=== PATIENT | male | born 1945 | race Caucasian/White ===

== ENCOUNTER 2017-06-17 12:52 | Emergency (ER) | payer MEDICARE ==
[~2017-06-17] VITALS: Ht 177.8 cm; Wt 83.5 kg
[~2017-06-17 12:52] MED LIST: ASPI81EC PO; Aspirin EC81 MG; BP MED PO; CEPH500 PO; CHOL10002 PO; CITRACAL PO; DICL75ER PO; Flomax0.4 MG PO; METO25ER PO; METO50ER PO; MULVITMIND PO; OMEP20ER PO; OXYACE5T PO; Omega 3 1,0001 EACH PO; Percocet 10-321 EACH PO; ROXICODONE5 MG PO; TAMS.4ER PO; WARF5 PO; XARELTO20 MG PO
[2017-06-17] MEDS ORDERED: CLOP75 PO (13:05)
[2017-06-17 13:22] LABS: BASOPHILS ABSOLUTE AUTO 0.05 K/mm3 (0.00-0.23); BASOPHILS PERCENT AUTO 1 % (0-2); EOSINOPHILS ABSOLUTE AUTO 0.09 K/mm3 (0.00-0.68); EOSINOPHILS PERCENT AUTO 1 % (0-6); Hematocrit 46.4 % (37.0-53.0); Hemoglobin 16.1 g/dL (13.5-17.5); IMMATURE GRAN ABSOLUTE AUTO 0.05 K/mm3 (0.00-0.10); IMMATURE GRAN PERCENT AUTO 1 % (0-1); LYMPHOCYTES ABSOLUTE AUTO 1.36 K/mm3 (0.84-5.20); LYMPHOCYTES PERCENT AUTO 12 % (21-46); MONOCYTES ABSOLUTE AUTO 0.45 K/mm3 (0.16-1.47); MONOCYTES PERCENT AUTO 4 % (4-13); Mean Corpuscular HGB Conc 34.7 g/dL (31.5-36.5); Mean Corpuscular Volume 89 fL (80-100); Mean Platelet Volume 10.2 fL (9.1-12.4); NEUTROPHILS ABSOLUTE AUTO 9.03 K/mm3 (1.96-9.15); NEUTROPHILS PERCENT AUTO 82 % (41-73); Platelet Count 224 K/mm3 (150-400); RDW Coefficient Variation 12.9 % (11.7-14.2); RDW Standard Deviation 42.6 fL (35.1-46.3); Red Blood Cell Count 5.19 M/mm3 (4.30-5.90); White Blood Cell Count 11.03 K/mm3 (4.00-11.30)
[2017-06-17 13:38] LABS: Troponin I <0.015 ng/mL (0.000-0.040)
[2017-06-17 14:06] LABS: Base Excess Venous -3.9 mmol/L; Bicarbonate Venous 22.1 mmol/L (24.0-30.0); PCO2 Venous 31.7 mmHg (38-42); PO2 Venous 71.7 mmHg (38-42); pH Blood Venous 7.42 (7.34-7.37)
[2017-06-17 15:29] LABS: Albumin, Blood 3.8 g/dL (3.4-5.0); Albumin/Globulin Ratio 1.1 (0.8-1.8); Alk Phos 69 U/L (50-136); Anion Gap 12 mmol/L (6-16); Aspartate Aminotrans (AST/SGOT 21 U/L (12-37); Bilirubin, Total 0.7 mg/dL (0.1-1.0); Blood Urea Nitrogen 27 mg/dL (8-24); Bun/Creatinine Ratio 30.7 (12.0-20.0); CO2, Blood 19 mmol/L (21-32); Calcium, Blood 8.9 mg/dL (8.5-10.1); Chloride, Blood 108 mmol/L (98-108); Creatinine, Blood 0.88 mg/dL (0.60-1.20); Globulin, Blood 3.4 g/dL (2.2-4.0); Glomerular Filtration Rate >60 (60-); Glucose, Blood 172 mg/dL (70-99); Potassium, Blood 3.8 mmol/L (3.5-5.5); Sodium, Blood 139 mmol/L (136-145); Total Protein, Blood 7.2 g/dL (6.4-8.2)
[2017-06-17 16:09] LABS: Alanine Aminotransfer (ALT/SGP 25 U/L (12-78)
== END 2017-06-17 15:27 | disposition home or self-care (01) ==
LOC: ER 12:52
PROVIDERS: Emergency Medicine
DX: J32.9 Chronic sinusitis, unspecified (principal); R42 Dizziness and giddiness; R06.4 Hyperventilation; K21.9 Gastro-esophageal reflux disease without esophagitis; Z79.899 Other long term (current) drug therapy; Z86.718 Personal history of other venous thrombosis and embolism; Z87.891 Personal history of nicotine dependence; Z79.02 Long term (current) use of antithrombotics/antiplatelets
CPT/HCPCS: 36415; 71046; 80053; 82803; 83880; 84484; 85025; 85379; 93005; 93010; 99284

== ENCOUNTER → 2017-10-02 | Outpatient (CLI) | payer MEDICARE ==
[~2017-10-02] MED LIST changes: +CLOP75 PO
[2017-10-03 14:18] LABS: Stool Occult Bld Immuno 1 Negative (NEGATIVE); Stool Occult Bld Immuno 2 Negative (NEGATIVE)
== END ==
LOC: LAB SHORT 12:35 → OLS 12:35
PROVIDERS: Internal Medicine Gastroenterology
DX: K57.30 Diverticulosis of large intestine without perforation or abscess without bleeding (principal); Z12.11 Encounter for screening for malignant neoplasm of colon
CPT/HCPCS: 82274

== ENCOUNTER 2019-04-14 09:27 | Day surgery (SDC) | payer MEDICARE ==
[~2019-04-14] VITALS: Ht 177.8 cm; Wt 90.4 kg
[2019-04-14] MEDS ORDERED: Naproxen375 MG PO (11:51)
== END 2019-04-14 12:00 | disposition home or self-care (01) ==
LOC: ORSCSDS 09:27
PROVIDERS: Internal Medicine Gastroenterology
PROC: 0D757ZZ Dilation of Esophagus, Via Natural or Artificial Opening (ICD-10-PCS; principal; 2019-04-14 10:45)
PROC: 0DB68ZX Excision of Stomach, Via Natural or Artificial Opening Endoscopic, Diagnostic (ICD-10-PCS; principal; 2019-04-14 10:45)
PROC: 0DB58ZX Excision of Esophagus, Via Natural or Artificial Opening Endoscopic, Diagnostic (ICD-10-PCS; principal; 2019-04-14 10:45)
DX: K22.70 Barrett's esophagus without dysplasia (principal); R13.14 Dysphagia, pharyngoesophageal phase; K44.9 Diaphragmatic hernia without obstruction or gangrene; Z87.891 Personal history of nicotine dependence; Z79.82 Long term (current) use of aspirin; Z79.899 Other long term (current) drug therapy
CPT/HCPCS: 87081; 88305; 88342; J2704; J7120

== ENCOUNTER → 2019-10-05 | Outpatient (CLI) | payer MEDICARE ==
[~2019-10-05] MED LIST changes: +Naproxen375 MG PO
== END | disposition home or self-care (01) ==
LOC: LAB SHORT 20:30 → LAB 20:30
DX: R19.7 Diarrhea, unspecified (principal)
CPT/HCPCS: 87493

== ENCOUNTER 2019-12-01 13:19 | Day surgery (SDC) | payer MEDICARE ==
[~2019-12-01] VITALS: Ht 180.3 cm; Wt 98.8 kg
--- NOTE | 2019-12-01 14:05 | NUR ---
12/01/19 1405 Emmanuelle Thrasher PT USED [facility]
== END 2019-12-01 15:18 | disposition home or self-care (01) ==
LOC: ORSCSDS 13:19
PROVIDERS: Internal Medicine Gastroenterology
PROC: 0DBE8ZX Excision of Large Intestine, Via Natural or Artificial Opening Endoscopic, Diagnostic (ICD-10-PCS; principal; 2019-12-01 14:45)
PROC: 0DBB8ZX Excision of Ileum, Via Natural or Artificial Opening Endoscopic, Diagnostic (ICD-10-PCS; principal; 2019-12-01 14:45)
DX: R19.7 Diarrhea, unspecified (principal); K57.30 Diverticulosis of large intestine without perforation or abscess without bleeding; E78.5 Hyperlipidemia, unspecified; Z87.891 Personal history of nicotine dependence; Z79.82 Long term (current) use of aspirin; Z79.899 Other long term (current) drug therapy
CPT/HCPCS: 88305; J2704; J7120

== ENCOUNTER → 2020-07-25 | Outpatient (CLI) | payer OTHER ==
[~2020-07-25] MED LIST changes: +ALEVE220 MG; +Aspirin EC81 MG PO; +BUDESONIDE EC3 M1 PO; +KRILL OIL 1,001 EACH PO; +MULTIPLE VITAM1 EACH PO; +Pepto-Bismol262 M1 PO
== END | disposition home or self-care (01) ==
LOC: LAB SHORT 13:21 → PLD 13:21
DX: D49.2 Neoplasm of unspecified behavior of bone, soft tissue, and skin (principal)
CPT/HCPCS: 88305

== ENCOUNTER 2020-08-16 08:19 | Day surgery (SDC) | payer OTHER ==
[~2020-08-16] VITALS: Ht 177.8 cm; Wt 91.2 kg
== END 2020-08-16 10:30 | disposition home or self-care (01) ==
LOC: ORSCSDS 08:19
PROVIDERS: Internal Medicine Gastroenterology
PROC: 0DB58ZX Excision of Esophagus, Via Natural or Artificial Opening Endoscopic, Diagnostic (ICD-10-PCS; principal; 2020-08-16 09:45)
PROC: 0DB78ZX Excision of Stomach, Pylorus, Via Natural or Artificial Opening Endoscopic, Diagnostic (ICD-10-PCS; principal; 2020-08-16 09:45)
DX: K22.70 Barrett's esophagus without dysplasia (principal); K29.50 Unspecified chronic gastritis without bleeding; K44.9 Diaphragmatic hernia without obstruction or gangrene; K21.9 Gastro-esophageal reflux disease without esophagitis; Z87.891 Personal history of nicotine dependence; Z86.718 Personal history of other venous thrombosis and embolism; Z79.82 Long term (current) use of aspirin; Z79.899 Other long term (current) drug therapy
CPT/HCPCS: 88305; 88341; 88342; J2704; J7120

== ENCOUNTER 2020-11-25 20:10 | Emergency (ER) | payer OTHER ==
[~2020-11-25] VITALS: Ht 177.8 cm; Wt 86.2 kg
[2020-11-25 22:09] LABS: BASOPHILS ABSOLUTE AUTO 0.04 K/mm3 (0.00-0.23); BASOPHILS PERCENT AUTO 0 % (0-2); EOSINOPHILS ABSOLUTE AUTO 0.01 K/mm3 (0.00-0.68); EOSINOPHILS PERCENT AUTO 0 % (0-6); Hematocrit 47.9 % (37.0-53.0); Hemoglobin 16.2 g/dL (13.5-17.5); IMMATURE GRAN ABSOLUTE AUTO 0.06 K/mm3 (0.00-0.10); IMMATURE GRAN PERCENT AUTO 1 % (0-1); LYMPHOCYTES ABSOLUTE AUTO 0.75 K/mm3 (0.84-5.20); LYMPHOCYTES PERCENT AUTO 6 % (21-46); MONOCYTES ABSOLUTE AUTO 0.86 K/mm3 (0.16-1.47); MONOCYTES PERCENT AUTO 7 % (4-13); Mean Corpuscular HGB 31.2 pg (26.0-34.0); Mean Corpuscular HGB Conc 33.8 g/dL (31.5-36.5); Mean Corpuscular Volume 92 fL (80-100); Mean Platelet Volume 9.9 fL (9.1-12.4); NEUTROPHILS ABSOLUTE AUTO 11.03 K/mm3 (1.96-9.15); NEUTROPHILS PERCENT AUTO 87 % (41-73); Platelet Count 214 K/mm3 (150-400); RDW Standard Deviation 44.1 fL (35.1-46.3); White Blood Cell Count 12.75 K/mm3 (4.00-11.30)
[2020-11-25 22:28] LABS: Albumin, Blood 3.7 g/dL (3.4-5.0); Albumin/Globulin Ratio 0.9 (0.8-1.8); Bun/Creatinine Ratio 17.4 (12.0-20.0); Creatinine, Blood 1.72 mg/dL (0.60-1.20); Globulin, Blood 3.9 g/dL (2.2-4.0); Potassium, Blood 4.4 mmol/L (3.5-5.5); Total Protein, Blood 7.6 g/dL (6.4-8.2)
[2020-11-25 23:32] LABS: Source, Urine Clean Catch
[2020-11-25 23:35] LABS: Bilirubin, Urine Neg (Neg); Blood, Urine 4+ (Neg); Glucose Qualitative, Urine Neg (Neg); Ketones, Urine 1+ (Neg); Leukocyte Esterase, Urine 2+ (Neg); Nitrite, Urine Neg (Neg); Protein, Urine 2+ (Neg); Urobilinogen, Urine NORM (Normal)
[2020-11-25 23:46] LABS: Appearance, Urine Hazy (Clear); Color, Urine Yellow (P-Yellow)
[2020-11-25 23:48] LABS: Amorphous Light (0-Heavy); Bacteria Mod /hpf; Squamous Epithelial Cells Not Seen /hpf (Few); White Blood Cells, Urine 25-50 /hpf (0-5)
[2020-11-26] MEDS ORDERED: METO50ER PO (01:35)
== END 2020-11-26 03:58 | disposition short-term general hospital (02) ==
LOC: ER 20:10
PROVIDERS: Physician Assistant
DX: N13.6 Pyonephrosis (principal); N18.9 Chronic kidney disease, unspecified; K21.9 Gastro-esophageal reflux disease without esophagitis; Z79.891 Long term (current) use of opiate analgesic; Z79.899 Other long term (current) drug therapy; Z87.442 Personal history of urinary calculi
CPT/HCPCS: 36415; 74176; 80053; 81001; 85025; 87077; 87086; 87186; 96365; 96375; 99284-25; J0696; J1885; J2270; J2405; J7030

== ENCOUNTER → 2021-02-05 | Outpatient (CLI) | payer OTHER ==
[2021-02-05 17:58] LABS: BASOPHILS ABSOLUTE AUTO 0.06 K/mm3 (0.00-0.23); BASOPHILS PERCENT AUTO 1 % (0-2); EOSINOPHILS ABSOLUTE AUTO 0.09 K/mm3 (0.00-0.68); EOSINOPHILS PERCENT AUTO 1 % (0-6); Hematocrit 48.1 % (37.0-53.0); Hemoglobin 16.8 g/dL (13.5-17.5); IMMATURE GRAN ABSOLUTE AUTO 0.09 K/mm3 (0.00-0.10); IMMATURE GRAN PERCENT AUTO 1 % (0-1); LYMPHOCYTES ABSOLUTE AUTO 1.69 K/mm3 (0.84-5.20); LYMPHOCYTES PERCENT AUTO 13 % (21-46); MONOCYTES ABSOLUTE AUTO 1.16 K/mm3 (0.16-1.47); MONOCYTES PERCENT AUTO 9 % (4-13); Mean Corpuscular HGB 31.2 pg (26.0-34.0); Mean Corpuscular HGB Conc 34.9 g/dL (31.5-36.5); Mean Corpuscular Volume 89 fL (80-100); Mean Platelet Volume 9.9 fL (9.1-12.4); NEUTROPHILS ABSOLUTE AUTO 10.24 K/mm3 (1.96-9.15); NEUTROPHILS PERCENT AUTO 77 % (41-73); Platelet Count 251 K/mm3 (150-400); RDW Coefficient Variation 13.9 % (11.7-14.2); RDW Standard Deviation 45.1 fL (35.1-46.3); Red Blood Cell Count 5.39 M/mm3 (4.30-5.90); White Blood Cell Count 13.33 K/mm3 (4.00-11.30)
[2021-02-05 18:09] LABS: Albumin, Blood 4.3 g/dL (3.4-5.0); Bilirubin, Total 0.5 mg/dL (0.1-1.0); Bun/Creatinine Ratio 18.3 (12.0-20.0); Calcium, Blood 9.6 mg/dL (8.5-10.1); Creatinine, Blood 1.53 mg/dL (0.60-1.20); Globulin, Blood 4.3 g/dL (2.2-4.0); Potassium, Blood 4.1 mmol/L (3.5-5.5); Total Protein, Blood 8.6 g/dL (6.4-8.2)
== END | disposition home or self-care (01) ==
LOC: LAB SHORT 17:52
PROVIDERS: Physician Assistant Medical
DX: R10.9 Unspecified abdominal pain (principal)
CPT/HCPCS: 80053; 85025

== ENCOUNTER → 2021-03-05 | Outpatient (CLI) | payer OTHER | END | disposition home or self-care (01) | LOC: LAB SHORT 19:02 | DX: N39.0 Urinary tract infection, site not specified (principal) | CPT/HCPCS: 87086 ==

== ENCOUNTER → 2021-07-23 | Outpatient (CLI) | payer OTHER ==
[2021-07-23 14:31] LABS: BASOPHILS ABSOLUTE AUTO 0.06 K/mm3 (0.00-0.23); BASOPHILS PERCENT AUTO 1 % (0-2); EOSINOPHILS ABSOLUTE AUTO 0.27 K/mm3 (0.00-0.68); EOSINOPHILS PERCENT AUTO 5 % (0-6); Hematocrit 50.7 % (37.0-53.0); IMMATURE GRAN ABSOLUTE AUTO 0.04 K/mm3 (0.00-0.10); IMMATURE GRAN PERCENT AUTO 1 % (0-1); LYMPHOCYTES ABSOLUTE AUTO 2.06 K/mm3 (0.84-5.20); LYMPHOCYTES PERCENT AUTO 39 % (21-46); MONOCYTES ABSOLUTE AUTO 0.77 K/mm3 (0.16-1.47); MONOCYTES PERCENT AUTO 15 % (4-13); Mean Corpuscular HGB 31.6 pg (26.0-34.0); Mean Corpuscular HGB Conc 33.5 g/dL (31.5-36.5); Mean Corpuscular Volume 94 fL (80-100); Mean Platelet Volume 10.6 fL (9.1-12.4); NEUTROPHILS ABSOLUTE AUTO 2.12 K/mm3 (1.96-9.15); NEUTROPHILS PERCENT AUTO 40 % (41-73); Platelet Count 257 K/mm3 (150-400); RDW Coefficient Variation 13.2 % (11.7-14.2); RDW Standard Deviation 45.4 fL (35.1-46.3); Red Blood Cell Count 5.38 M/mm3 (4.30-5.90); White Blood Cell Count 5.32 K/mm3 (4.00-11.30)
[2021-07-23 14:41] LABS: Alanine Aminotransfer (ALT/SGP 37 U/L (12-78); Albumin, Blood 3.7 g/dL (3.4-5.0); Albumin/Globulin Ratio 1.1 (0.8-1.8); Alk Phos 65 U/L (50-136); Anion Gap 6 mmol/L (6-16); Aspartate Aminotrans (AST/SGOT 18 U/L (12-37); Bilirubin, Total 0.6 mg/dL (0.1-1.0); Blood Urea Nitrogen 26 mg/dL (8-24); Bun/Creatinine Ratio 26.3 (12.0-20.0); CHOL/HDL RATIO 4.1; CO2, Blood 28 mmol/L (21-32); Calcium, Blood 9.3 mg/dL (8.5-10.1); Chloride, Blood 106 mmol/L (98-108); Cholesterol 177 mg/dL (50-200); Creatinine, Blood 0.99 mg/dL (0.60-1.20); Globulin, Blood 3.5 g/dL (2.2-4.0); Glomerular Filtration Rate >60 (60-); Glucose, Blood 120 mg/dL (70-99); HDL Cholesterol 43 mg/dL (>39); LDL/HDL RATIO 2.6; Low Density Lipoprotein Chol 113 mg/dL (0-110); Potassium, Blood 4.9 mmol/L (3.5-5.5); Sodium, Blood 140 mmol/L (136-145); Total Protein, Blood 7.2 g/dL (6.4-8.2); Triglycerides 105 mg/dL (30-160); Very Low Density Lipoprot Chol 21 mg/dL (6-32)
== END | disposition home or self-care (01) ==
LOC: LAB 12:54 → LAB SHORT 12:54
PROVIDERS: Family Medicine
DX: Z12.5 Encounter for screening for malignant neoplasm of prostate (principal); E78.2 Mixed hyperlipidemia; I10 Essential (primary) hypertension
CPT/HCPCS: 36415; 80053; 80061; 85025; G0103

== ENCOUNTER 2023-05-21 22:32 | Inpatient (IN) | payer OTHER ==
[~2023-05-21] VITALS: Ht 188 cm; Wt 90.2 kg
[2023-05-21 23:02] LABS: Source, Urine Clean Catch
[2023-05-21 23:23] LABS: Bilirubin, Urine Neg (Neg); Blood, Urine 5+ (Neg); Glucose Qualitative, Urine Neg (Neg); Ketones, Urine 1+ (Neg); Leukocyte Esterase, Urine 3+ (Neg); Nitrite, Urine Neg (Neg); Protein, Urine 4+ (Neg); Specific Gravity, Urine 1.015 (1.003-1.022); Urobilinogen, Urine NORM (Normal)
[2023-05-21 23:49] LABS: Appearance, Urine Turbid (Clear); Color, Urine Red (P-Yellow)
[2023-05-21 23:50] LABS: Albumin, Blood 3.7 g/dL (3.4-5.0); Albumin/Globulin Ratio 0.9 (0.8-1.8); Bilirubin, Total 0.7 mg/dL (0.1-1.0); Bun/Creatinine Ratio 28.4 (12.0-20.0); Creatinine, Blood 1.02 mg/dL (0.60-1.20); Globulin, Blood 4.2 g/dL (2.2-4.0); Potassium, Blood 4.8 mmol/L (3.5-5.5); Total Protein, Blood 7.9 g/dL (6.4-8.2)
[2023-05-21 23:51] LABS: Red Blood Cells, Urine TNTC /hpf (0-2); White Blood Cells, Urine 25-50 /hpf (0-5)
[2023-05-21 23:52] LABS: Bacteria Mod /hpf; Squamous Epithelial Cells Not Seen /hpf (Few)
[2023-05-22] VITALS (65 sets, daily range): BP systolic 61–99; BP diastolic 44–67
[2023-05-22 00:28] LABS: BASOPHILS ABSOLUTE AUTO 0.01 K/mm3 (0.00-0.23); BASOPHILS PERCENT AUTO 0 % (0-2); EOSINOPHILS ABSOLUTE AUTO 0.03 K/mm3 (0.00-0.68); EOSINOPHILS PERCENT AUTO 1 % (0-6); Hematocrit 41.1 % (37.0-53.0); Hemoglobin 14.3 g/dL (13.5-17.5); IMMATURE GRAN ABSOLUTE AUTO 0.04 K/mm3 (0.00-0.10); IMMATURE GRAN PERCENT AUTO 2 % (0-1); LYMPHOCYTES ABSOLUTE AUTO 0.19 K/mm3 (0.84-5.20); LYMPHOCYTES PERCENT AUTO 8 % (21-46); MONOCYTES ABSOLUTE AUTO 0.01 K/mm3 (0.16-1.47); MONOCYTES PERCENT AUTO 0 % (4-13); Mean Corpuscular HGB 31.8 pg (26.0-34.0); Mean Corpuscular HGB Conc 34.8 g/dL (31.5-36.5); Mean Corpuscular Volume 92 fL (80-100); Mean Platelet Volume 9.7 fL (9.1-12.4); NEUTROPHILS ABSOLUTE AUTO 2.09 K/mm3 (1.96-9.15); NEUTROPHILS PERCENT AUTO 88 % (41-73); Platelet Count 208 K/mm3 (150-400); RDW Coefficient Variation 12.8 % (11.7-14.2); RDW Standard Deviation 43.1 fL (35.1-46.3); Red Blood Cell Count 4.49 M/mm3 (4.30-5.90); White Blood Cell Count 2.37 K/mm3 (4.00-11.30)
[2023-05-22] MEDS ORDERED: ACETAMINOPHEN-CODEIN (03:00)
[2023-05-22 05:27] LABS: Hematocrit 37.7 % (37.0-53.0); Mean Corpuscular HGB 31.8 pg (26.0-34.0); Mean Corpuscular HGB Conc 34.5 g/dL (31.5-36.5); Mean Corpuscular Volume 92 fL (80-100); Mean Platelet Volume 9.9 fL (9.1-12.4); Platelet Count 165 K/mm3 (150-400); RDW Coefficient Variation 12.8 % (11.7-14.2); RDW Standard Deviation 43.2 fL (35.1-46.3); Red Blood Cell Count 4.09 M/mm3 (4.30-5.90); White Blood Cell Count 9.19 K/mm3 (4.00-11.30)
[2023-05-22 06:26] LABS: BAND PERCENT MAN 26 % (0-8); BASOPHILS ABSOLUTE MAN 0.09 K/mm3 (0.00-0.23); BASOPHILS PERCENT MAN 1 % (0-2); EOSINOPHILS PERCENT MAN 0 % (0-6); LYMPHOCYTES ABSOLUTE MAN 0.27 K/mm3 (0.84-5.20); LYMPHOCYTES PERCENT MAN 3 % (21-46); MONOCYTES ABSOLUTE MAN 0.18 K/mm3 (0.16-1.47); MONOCYTES PERCENT MAN 2 % (4-13); MYELOCYTE ABSOLUTE MAN 0.09 K/mm3 (0.00-0.00); MYELOCYTE PERCENT MAN 1 % (0-0); NEUTROPHILS ABSOLUTE MAN 8.54 K/mm3 (1.96-9.15); SEG NEUTROPHILS PERCENT MAN 67 % (41-73); TOTAL CELLS COUNTED 100
--- NOTE | 2023-05-22 07:34 | NUR ---
PATIENT TO ICU 14 AT 0505 FROM ER. PATIENT IS ALERT AND ORIENTED X4. 02 SATS >93% ON RA, DENIES SOB. HR A. FIB 100-110. BP HYPOTENSIVE MAP IN THE 50s, 1L LR BOLUS WHEN PATIENT ARRIVED, BP REMAINED LOW AND LOW DOSE LEVO STARTED THROUGH PERIPHERAL IV, HOSPITALIST AWARE, IV DRAWS BACK. LR AT 150 MLS/HR ALSO STARTED. COMPLAINING OF RIGHT FLANK PAIN 5/10, MEDICATED PER EMAR. PATIENT STATES HIS URINE IS DARK RED, NO OUTPUT FOR ME SINCE ARRIVAL. CALL LIGHT IN REACH
--- NOTE | 2023-05-22 18:36 | NUR ---
Shift summary. Pt rested in bed throughout shift, on RA, alert and oriented. Pt up to corner commode, steady on feet with stable gait, easily ambulates self. At approximately 0915, R/forearm IV found to be infiltrated with LR and Levophed infusing in it. Pharmacy and physician notified, orders obtained for SC phentolamine, administered with good effect. Pt reports relief of any pain in area of extravasation. PICC line placed by PICC RN for continued IV infusions. Pt able to rest comfortably the rest of the shift, denies further flank pain this evening. Levophed infusing at 4 mcg/min, LR 100, NS TKO. See chart for further details, will report off to quick sketch artist RN.
--- NOTE | 2023-05-22 20:39 | NUR ---
ASSUMED CARE AT 1900 PATIENT IS ALERT AND ORIENTED X4. 02 SATS 97% ON RA, RR 14. DENIES SOB. HR A.FIB 70s-80s. BP STABLE ON LEVOPHED 4 MCG/MIN, LR INF AT 100 MLS/HR. DENIES CP/PRESSURE. PATIENT STATES HE FEELS CONSTIPATED, MEDICATED PER EMAR. HEMATURIA IMPROVING, ABLE TO VOID. INDEPENDENT WITH REPOSITIONING. CALL LIGHT IN REACH.
[2023-05-23] VITALS (37 sets, daily range): BP systolic 81–127; BP diastolic 52–83
[2023-05-23 04:18] LABS: Hematocrit 34.7 % (37.0-53.0); Hemoglobin 12.2 g/dL (13.5-17.5); Mean Corpuscular HGB Conc 35.2 g/dL (31.5-36.5); Mean Corpuscular Volume 91 fL (80-100); Mean Platelet Volume 10.3 fL (9.1-12.4); Platelet Count 165 K/mm3 (150-400); RDW Coefficient Variation 13.2 % (11.7-14.2); RDW Standard Deviation 43.4 fL (35.1-46.3); Red Blood Cell Count 3.81 M/mm3 (4.30-5.90)
[2023-05-23 04:50] LABS: Magnesium, Blood 1.8 mg/dL (1.6-2.4)
[2023-05-23 04:51] LABS: Albumin, Blood 2.5 g/dL (3.4-5.0); Anion Gap 3 mmol/L (6-16); Blood Urea Nitrogen 28 mg/dL (8-24); Bun/Creatinine Ratio 24.3 (12.0-20.0); CO2, Blood 25 mmol/L (21-32); Calcium, Blood 8.1 mg/dL (8.5-10.1); Chloride, Blood 113 mmol/L (98-108); Creatinine, Blood 1.15 mg/dL (0.60-1.20); Glomerular Filtration Rate 65 (60-); Glucose, Blood 125 mg/dL (70-99); Phosphorus, Blood 2.1 mg/dL (2.5-4.9); Sodium, Blood 141 mmol/L (136-145)
--- NOTE | 2023-05-23 06:28 | NUR ---
SHIFT SUMMARY PATIENT REMAINS ALERT AND ORIENTED X4. 02 SATS 96% ON RA. HR A.FIB 80s-90s. LEVOPHED TITRATED OFF AT APPROX 0400, MAP MAINTAINING >65. PATIENT INDEPENDENT UP TO TOILET THROUGH THE NIGHT. ABLE TO URINATE AND STATED NO MORE BLOOD IN HIS URINE, SEVERAL UNMEASURED VOIDS. ONE LARGE BM THIS SHIFT. CALL LIGHT IN REACH
--- NOTE | 2023-05-23 07:15 | NUR ---
ASSUMPTION OF CARE PT RECEIVING LR 100ML/HR. PT IS ALERT AND ORIENTED. HE IS ON RA, DENIES SOB. AFIB ON MONITOR WITH RATE IN 70S-80S. SBP 90S-100S, MAP >65. PT PT DENIES FLANK PAIN. HE REPORTS URINE IS "NORMAL" AND APPEARS CLEAR. BED IN LOW POSITION, CALL LIGHT WITHIN REACH.
--- NOTE | 2023-05-23 12:19 | NUR ---
UPDATE PT REMAINS ALERT AND ORIENTED. PT USES CALL LIGHT APPROPRIATELY, INDEPENDENT IN ROOM AND HAS STEADY GAIT. BP STABLE THIS MORNING. AT BEDSIDE. HOSPITALIST ROUNDED, PT STATUS CHANGED TO MED WITHOUT TELE.
--- NOTE | 2023-05-23 16:40 | NUR ---
TRANSFER TO [facility] REPORT GIVEN TO TERESA CERVANTES. PT STS HE WILL NOTIFY HIS OF NEW ROOM.
--- NOTE | 2023-05-23 18:38 | NUR ---
PT ARRIVED TO THE MEDICAL FLOOR FROM THE ICU VIA WHEELCHAIR A/OX4, PLEASANT AND COOPERATIVE. THE PT IS UP IND IN HIS ROOM. PT WAS UP AND TOOK A SHOWER THIS EVENING. PT APPEARS TO BE BREATHING EASILY ON RA. CALL LIGHT IN REACH
--- NOTE | 2023-05-24 03:40 | NUR ---
1900: ASSUMED CARE OF PT, BEDSIDE REPORT RECEIVED FROM DAY SHIFT RN TERESA. PT IS LAYING IN BED WITH HOB ELEVATED. A/O X4, BREATHING IS EVEN AND UNLABORED, NO ACUTE DISTRESS, COMPLAINT OF A REYES. DAY RN TO MEDICATED WITH TYLENOL. PT SLEPT MOST OF THE NIGHT, VSS, MEDICATIONS PROVIDED ORDERED. BLOOD PRESSURE MAINTAINED > 100 SYSTOLIC THROUGH THE SHIFT. SHIFT IS UNEVENTFUL. SAFETY MEASURES TAKEN, ALL NEEDS ADDRESSED.
[2023-05-24 05:41] VITALS: BP 125/90
[2023-05-24 07:52] VITALS: BP 129/95
[2023-05-24] MEDS ORDERED: VISBIOME 112.51 EACH PO (12:16)
[2023-05-24] MEDS ORDERED: CEPH500 PO (12:17)
--- NOTE | 2023-05-24 13:15 | NUR ---
PT DISCHARGED AT 1305 WITH ALL PERSONAL BELONINGS AND TO TRANSPORT HOME. PT HAD ALL PAPERWORK REVIEWED AND EDUCATIONAL MATERIAL SENT WITH HIM. PT HAS BEEN AOX4 AND COOPERATIVE OF ALL CARE. NO PAIN WAS REPORTED. INDEPENDENT IN ROOM. PT ESCORTED VIA WHEEL CHAIR TO [facility].
== END 2023-05-24 13:05 | disposition home or self-care (01) | DRG 871 ==
LOC: ER 22:32 → ICUE 05-22 04:28 → MEDS 05-22 04:28 → ICUE 05-22 04:56 → MEDS 05-23 17:17
PROVIDERS: Emergency Medicine; Family Medicine; Internal Medicine; ADMIT Student in an Organized Health Care Education/Training Program
PROC: 3E03329 Introduction of Other Anti-infective into Peripheral Vein, Percutaneous Approach (ICD-10-PCS; principal; 2023-05-22)
PROC: 3E033XZ Introduction of Vasopressor into Peripheral Vein, Percutaneous Approach (ICD-10-PCS; 2023-05-22)
DX: A41.59 Other Gram-negative sepsis (principal); R65.21 Severe sepsis with septic shock; N13.6 Pyonephrosis; T80.818A Extravasation of other vesicant agent, initial encounter; K21.9 Gastro-esophageal reflux disease without esophagitis; R91.8 Other nonspecific abnormal finding of lung field; N32.3 Diverticulum of bladder; N28.1 Cyst of kidney, acquired; K22.70 Barrett's esophagus without dysplasia; Y84.8 Other medical procedures as the cause of abnormal reaction of the patient, or of later complication, without mention of misadventure at the time of the procedure; Z79.82 Long term (current) use of aspirin; Z98.1 Arthrodesis status; Z87.891 Personal history of nicotine dependence
CPT/HCPCS: 36415; 36569; 71045; 74177; 80053; 80069; 81001; 82330; 83605; 83735; 85025; 85027; 87040; 87077; 87086; 87186; 93005; 93010; 96361; 96365-59; 96375; 99285-25; A9270; C1751; J0696; J2543; J2760; J3010; J7030; J7050; J7060; J7120; Q9967

== ENCOUNTER 2023-10-21 08:41 | Day surgery (SDC) | payer OTHER ==
[~2023-10-21] VITALS: Ht 175.3 cm; Wt 83.6 kg
[~2023-10-21 08:41] MED LIST changes: +ACETAMINOPHEN-CODEIN; +VISBIOME 112.51 EACH PO
[2023-10-21] MEDS ORDERED: propofoL 50 ML IV ONE (08:49)
[2023-10-21] MEDS ORDERED: Lactated Ringer's 1,000 ML IV ONE ×2 (08:49→09:21)
[2023-10-21] MEDS ORDERED: OMEP20ER (08:59)
[2023-10-21] MEDS ORDERED: Lidocaine HCl/Pf 1% 5 ML VIAL ONE (09:11)
[2023-10-21 10:19] VITALS: BP 105/82
== END 2023-10-21 10:26 | disposition home or self-care (01) ==
LOC: ORSCSDS 08:41
PROVIDERS: Specialist
PROC: 0DB58ZX Excision of Esophagus, Via Natural or Artificial Opening Endoscopic, Diagnostic (ICD-10-PCS; principal; 2023-10-21 10:00)
DX: K22.70 Barrett's esophagus without dysplasia (principal); K44.9 Diaphragmatic hernia without obstruction or gangrene; K21.9 Gastro-esophageal reflux disease without esophagitis; I10 Essential (primary) hypertension; E78.5 Hyperlipidemia, unspecified; K58.9 Irritable bowel syndrome, unspecified; Z79.82 Long term (current) use of aspirin; Z79.899 Other long term (current) drug therapy
CPT/HCPCS: 88305; J2001; J2704; J7120